=== PATIENT | male | born 1990 | race Caucasian/White ===

== ENCOUNTER → 2021-05-20 | Outpatient (REF) | payer OTHER ==
[~2021-05-20] MED LIST: BAYE325T16 PO; CALC600T57 PO; FLUO20CA22 PO; MELO7.5T35 PO
== END ==
LOC: M LAB REF 14:43
PROVIDERS: ATTEND Internal Medicine Medical Oncology
DX: D47.3 Essential (hemorrhagic) thrombocythemia (principal); Z79.899 Other long term (current) drug therapy; Z79.82 Long term (current) use of aspirin

== ENCOUNTER → 2021-08-13 | Outpatient (REF) | payer OTHER ==
[2021-08-13 12:46] LABS: BASO % 0.7 % (0.0-1.0); EOS # 0.1 10^3/uL (0.0-0.5); EOS % 2.3 % (0.0-3.0); HEMATOCRIT 44.5 % (42.0-52.0); LYMPH # 2.3 10^3/uL (1.5-5.0); LYMPH % 39.9 % (24.0-44.0); MEAN CORPUSCULAR HEMOGLOBIN 30.9 pg (27.0-33.0); MEAN CORPUSCULAR HGB CONC 33.7 g/dl (32.0-36.5); MEAN CORPUSCULAR VOLUME 91.8 fl (80.0-96.0); MONO # 0.7 10^3/uL (0.0-0.8); NEUTROPHILS # 2.6 10^3/uL (1.5-8.5); NEUTROPHILS % 44.6 % (36.0-66.0); PLATELET COUNT, AUTOMATED 477 10^3/uL (150-450); RED BLOOD COUNT 4.85 10^6/uL (4.30-6.10); WHITE BLOOD COUNT 5.8 10^3/uL (4.0-10.0)
[2021-08-13 13:12] LABS: ALBUMIN 4.1 GM/DL (3.2-5.2); ALT/SGPT 39 U/L (12-78); BILIRUBIN,TOTAL 0.3 MG/DL (0.2-1.0); BLOOD UREA NITROGEN 11 MG/DL (7-18); CALCIUM LEVEL 9.6 MG/DL (8.5-10.1); CARBON DIOXIDE LEVEL 32 MEQ/L (21-32); CHLORIDE LEVEL 105 MEQ/L (98-107); CREATININE FOR GFR 1.05 MG/DL (0.70-1.30); GLOMERULAR FILTRATION RATE > 60.0 (>60); GLUCOSE, FASTING 76 MG/DL (70-100); POTASSIUM SERUM 4.3 MEQ/L (3.5-5.1); SODIUM LEVEL 138 MEQ/L (136-145); TOTAL PROTEIN 7.5 GM/DL (6.4-8.2)
[2021-08-13 13:45] LABS: ERYTHROCYTE SEDIMENTATION RATE 3 mm/hr (0-15)
[2021-08-18 13:49] LABS: ALPHA-1-GLOBULIN % 3.7 % (2.9-4.9); ALPHA-1-GLOBULINS 0.28 GM/DL (0.17-0.41); ALPHA-2-GLOBULINS 0.67 GM/DL (0.42-0.99); ALPHA-2-GLOBULINS % 8.9 % (7.1-11.8); BETA-1-GLOBULINS 0.47 GM/DL (0.28-0.60); BETA-1-GLOBULINS % 6.2 % (4.7-7.2); BETA-2-GLOBULINS 0.48 GM/DL (0.19-0.55); BETA-2-GLOBULINS % 6.4 % (3.2-6.5); GAMMA GLOBULIN % 14.8 % (11.1-18.8); GAMMA GLOBULINS 1.11 GM/DL (0.65-1.58)
== END ==
LOC: M SFHCRHEU 09:31
PROVIDERS: ATTEND Internal Medicine Rheumatology
DX: D75.839 Thrombocytosis, unspecified (principal); M35.3 Polymyalgia rheumatica; R11.0 Nausea; R68.2 Dry mouth, unspecified

== ENCOUNTER → 2021-10-01 | Outpatient (CLI) | payer OTHER ==
[~2021-10-01] MED LIST changes: +ABIL1TAB11 PO; +LIDOCAINE 1% MDV 20ML VIAL As Ordered ONE
[2021-10-01 12:12] LABS: BASO # 0.1 10^3/uL (0.0-0.2); BASO % 0.8 % (0.0-1.0); EOS # 0.1 10^3/uL (0.0-0.5); HEMATOCRIT 42.3 % (42.0-52.0); HEMOGLOBIN 14.5 g/dl (13.5-17.5); LYMPH # 2.4 10^3/uL (1.5-5.0); LYMPH % 39.9 % (24.0-44.0); MEAN CORPUSCULAR HEMOGLOBIN 30.9 pg (27.0-33.0); MEAN CORPUSCULAR HGB CONC 34.3 g/dl (32.0-36.5); MONO # 0.7 10^3/uL (0.0-0.8); NEUTROPHILS # 2.7 10^3/uL (1.5-8.5); NEUTROPHILS % 44.8 % (36.0-66.0); PLATELET COUNT, AUTOMATED 436 10^3/uL (150-450)
[2021-10-01 13:08] VITALS: BP 135/96
== END ==
LOC: M IRPRO 10:44
PROVIDERS: ATTEND Internal Medicine Medical Oncology
DX: D75.839 Thrombocytosis, unspecified (principal)

== ENCOUNTER 2023-10-23 11:32 | Emergency (ER) | payer OTHER ==
[~2023-10-23] VITALS: Ht 182.9 cm; Wt 122.0 kg
[~2023-10-23 11:32] MED LIST changes: +FLUO-365 PO; -FLUO20CA22 PO; -LIDOCAINE 1% MDV 20ML VIAL As Ordered ONE
[2023-10-23] MEDS ORDERED: BUSP15TA47 PO (11:47)
[2023-10-23] MEDS ORDERED: MIRT1TAB16 PO (11:47)
[2023-10-23] MEDS: predniSONE 20 MG TAB PO ONE (14:52)
[2023-10-23] MEDS ORDERED: MEDR4PAK PO (15:59)
[2023-10-23 16:08] VITALS: BP 129/81; TEMP 97.7; O2SAT 99
[2023-10-24] MEDS ORDERED: MEDR4PAK PO (08:48)
== END 2023-10-23 16:12 | disposition home or self-care (01) ==
LOC: M ED 11:32
DX: S39.012A Strain of muscle, fascia and tendon of lower back, initial encounter (principal); X50.0XXA Overexertion from strenuous movement or load, initial encounter; Y92.9 Unspecified place or not applicable; Y93.89 Activity, other specified; Y99.0 Civilian activity done for income or pay; F32.A Depression, unspecified
CPT/HCPCS: 72131; 72192; 99283; J7512